=== PATIENT | female | born 1995 | race Caucasian/White ===

== ENCOUNTER 2020-08-24 14:34 | Inpatient (IN) | payer OTHER ==
[~2020-08-24] VITALS: Ht 170.2 cm; Wt 78.5 kg
[2020-08-24] MEDS ORDERED: PRENATAL VITAM1 EAC5 PO (15:53)
[2020-08-24 16:01] LABS: HEMOGLOBIN 11.6 gm/dl (12.3-15.3); RED BLOOD COUNT 4.58 M/UL (4.00-5.10); WHITE BLOOD COUNT 9.6 K/UL (4.5-11.0)
[2020-08-24 16:27] LABS: BUN/CREATININE RATIO 7 (0-10)
[2020-08-25 06:34] LABS: HEMOGLOBIN 10.7 gm/dl (12.3-15.3)
[2020-08-25] MEDS ORDERED: HYDROCODON-ACE1 EAC4 PO (13:00)
[2020-08-25] MEDS ORDERED: DOCUSATE SODIU100 MG PO (13:00)
[2020-08-25] MEDS ORDERED: IBUPROFEN600 MG PO (13:00)
== END 2020-08-26 09:10 | disposition home or self-care (01) | DRG 787 ==
LOC: GENOP 14:34 → OB 15:30
PROVIDERS: ADMIT Obstetrics & Gynecology
PROC: 10D00Z1 Extraction of Products of Conception, Low, Open Approach (ICD-10-PCS; principal; 2020-08-24 17:29)
DX: O42.913 Preterm premature rupture of membranes, unspecified as to length of time between rupture and onset of labor, third trimester (principal); O99.324 Drug use complicating childbirth; O98.42 Viral hepatitis complicating childbirth; Z3A.35 35 weeks gestation of pregnancy; Z37.0 Single live birth; O34.211 Maternal care for low transverse scar from previous cesarean delivery; N85.8 Other specified noninflammatory disorders of uterus; O99.334 Smoking (tobacco) complicating childbirth; F15.10 Other stimulant abuse, uncomplicated; F17.210 Nicotine dependence, cigarettes, uncomplicated; O67.9 Intrapartum hemorrhage, unspecified; Z20.822 Contact with and (suspected) exposure to COVID-19; Z28.9 Immunization not carried out for unspecified reason; B19.20 Unspecified viral hepatitis C without hepatic coma
CPT/HCPCS: 80053; 80307; 81001; 82800; 83518; 85014; 85018; 85025; 85384; 85610; 85730; 87635; C9113; J0690; J2060; J2250; J2274; J2590; J3010; J7120

== ENCOUNTER 2021-02-18 21:35 | Emergency (ER) | payer OTHER ==
[~2021-02-18 21:35] MED LIST: DOCUSATE SODIU100 MG PO; HYDROCODON-ACE1 EAC4 PO; IBUPROFEN600 MG PO; PRENATAL VITAM1 EAC5 PO
[2021-02-18] MEDS ORDERED: EPIPEN 2-P0.3 MG/0.3 INJ (23:37)
[2021-02-18] MEDS ORDERED: FAMOTIDINE20 MG PO (23:41)
[2021-02-18] MEDS ORDERED: BENADRYL ALLERG25 MG PO (23:41)
== END 2021-02-18 23:40 | disposition home or self-care (01) ==
LOC: ER1 21:35
DX: T63.441A Toxic effect of venom of bees, accidental (unintentional), initial encounter (principal); F17.210 Nicotine dependence, cigarettes, uncomplicated
CPT/HCPCS: 96372; 96374; 96375; 99281; J0171; J1200; J2930